=== PATIENT | male | born 1955 | race Two or more races ===

== ENCOUNTER 2023-03-14 02:14 | Inpatient (IN) | payer MEDICARE, MEDICAID ==
[~2023-03-14] VITALS: Ht 177.8 cm; Wt 93.4 kg
[2023-03-14] MEDS ORDERED: LABETALOL HCL 5 MG/ML 20 ML VIAL IVP PRN ×4 (02:30)
[2023-03-14 03:29] LABS: BASOPHILS % (AUTO) 0.7 % (0.0-2.0); EOSINOPHILS % (AUTO) 3.5 % (1.0-6.0); HEMATOCRIT 42.8 % (41-53); HEMOGLOBIN 14.6 g/dL (13.5-17.5); LYMPHOCYTES # (AUTO) 2.5 K/uL (1.0-4.8); LYMPHOCYTES % (AUTO) 32.3 % (22.0-44.0); MEAN CORPUSCULAR HEMOGLOBIN 31.2 pg (26.0-34.0); MEAN CORPUSCULAR VOLUME 92 fL (80-100); MONOCYTES # (AUTO) 0.4 K/uL (0.1-1.0); MONOCYTES % (AUTO) 5.7 % (2.0-9.0); NEUTROPHILS # (AUTO) 4.5 K/uL (1.8-7.7); NEUTROPHILS % (AUTO) 57.8 % (40.0-70.0); PLATELET COUNT (AUTO) 230 K/uL (150-450); RED BLOOD CELL COUNT(AUTO) 4.68 MIL/uL (4.50-5.90); RED CELL DISTRIBUTION WIDTH 13.6 % (11.5-14.5); WHITE BLOOD COUNT (AUTO) 7.8 K/uL (4.5-11.0)
[2023-03-14 03:39] LABS: ANION GAP 6 mmol/L (8-16); CARBON DIOXIDE 27 mmol/L (22-29); CHLORIDE 102 mmol/L (98-107); CREATININE 1.14 mg/dL (0.60-1.30); GLOMERULAR FILTR. RATE CALC > 60 mL/min (>60); GLUCOSE,RANDOM 165 mg/dL (70-110); POTASSIUM 3.7 mmol/L (3.5-5.1); SODIUM SERUM 135 mmol/L (136-145); UREA NITROGEN, BLOOD 20 mg/dL (7-18)
[2023-03-14 03:43] LABS: CHOL/HDL RATIO 4.3 (4.2-7.3); CHOLESTEROL 179 mg/dL (131-200); HDL CHOLESTEROL 42 mg/dL (40-60); LDL CHOL (CALC.) 92 mg/dL (0-130); TRIGLYCERIDES 227 mg/dL (15-150)
[2023-03-14 03:45] LABS: ALANINE AMINOTRANSFERASE 38 U/L (12-78); ALBUMIN 3.6 g/dL (3.4-5.0); ALKALINE PHOSPHATASE 60 U/L (46-116); ASPARTATE AMINOTRANSFERASE 25 U/L (15-37); BILIRUBIN,TOTAL 0.4 mg/dL (0.1-1.0); TOTAL PROTEIN, SERUM 7.1 g/dL (6.4-8.2)
[2023-03-14 03:47] LABS: TROPONIN I-HIGH SENSITIVITY 8 ng/L (<76)
[2023-03-14 03:51] LABS: ALCOHOL, BLOOD (SERUM) < 3 mg/dL (0-10)
[2023-03-14] MEDS ORDERED: ASPIRIN 325 MG TABLET PO ONE (04:00)
[2023-03-14] MEDS ORDERED: CLOPIDOGREL BISULFATE 75 MG TABLET PO ONE (04:00)
[2023-03-14 04:16] LABS: PROTHROMBIN TIME 10.8 SEC (9.4-11.6)
[2023-03-14 04:43] LABS: COVID AG,FIA SOURCE NASAL SWAB
[2023-03-14] MEDS ORDERED: ONDANSETRON HCL 4 MG/2 ML VIAL IVP PRN (04:45)
[2023-03-14] MEDS ORDERED: ACETAMINOPHEN 325 MG TABLET PO PRN (04:45)
[2023-03-14 04:49] LABS: SARS-COV2 (COVID) ANTIGEN,FIA Negative (Negative)
[2023-03-14] MEDS: HEPARIN SODIUM,PORCINE 5,000 UNITS/ML VIAL SQ SCH ×3 (07:18→23:07)
[2023-03-14] MEDS ORDERED: INSULIN LISPRO 100 UNITS/ML SQ PRN (07:45)
[2023-03-14] MEDS ORDERED: DEXTROSE 50%-WATER 25 GM/50 ML SYRINGE IVP PRN (07:45)
[2023-03-14 08:19] LABS: APPEARANCE,URINE CLEAR (CLEAR); BILIRUBIN,URINE NEGATIVE (NEGATIVE); COLOR,URINE LIGHT YELLOW (YELLOW); GLUCOSE, URINE (UA) 70-100 mg/dL (NEGATIVE); KETONES,URINE NEGATIVE (NEGATIVE); LEUKOCYTE ESTERASE ,URINE NEGATIVE (NEGATIVE); NITRATE,URINE NEGATIVE (NEGATIVE); OCCULT BLOOD,URINE NEGATIVE (NEGATIVE); PH,URINE 5.5 (5.0-8.0); PH,URINE DRUG SCREEN 5.5 (5.0-8.0); PROTEIN,URINE 30-70 mg/dL (NEGATIVE); SPECIFIC GRAVITIY, URINE > 1.030 (1.003-1.030); UROBILINOGEN,URINE <=1.0 mg/dL (<=1.0)
[2023-03-14 08:24] LABS: ALCOHOL, URINE DRUG SCREEN NEGATIVE (NEGATIVE); AMPHET/METH SCREEN,URINE NEGATIVE (NEGATIVE); BARBITURATE SCREEN, URINE NEGATIVE (NEGATIVE); BENZODIAZEPINES SCREEN,URINE NEGATIVE (NEGATIVE); CANNABINOID SCREEN,URINE NEGATIVE (NEGATIVE); COCAINE SCREEN,URINE NEGATIVE (NEGATIVE); METHADONE SCREEN, URINE NEGATIVE (NEGATIVE); OPIATE SCREEN,URINE NEGATIVE (NEGATIVE); PHENCYCLIDINE SCREEN,URINE NEGATIVE (NEGATIVE)
[2023-03-14 08:34] LABS: BACTERIA,URINE None Seen /HPF (None Seen); RBC,URINE None Seen /HPF (0-2); WBC,URINE None Seen /HPF (0-5)
[2023-03-14] MEDS: DOCUSATE SODIUM 100 MG CAPSULE PO SCH ×2 (08:42→21:10)
[2023-03-14] MEDS: ATORVASTATIN CALCIUM 40 MG TABLET PO SCH (08:42)
[2023-03-14 12:28] VITALS: BP 137/84; PULSE 71; RESP 18; TEMP 97.8
[2023-03-14 12:51] LABS: GLUCOMETER DEV NAME(LOC) 5S.2C; GLUCOSE,POINT OF CARE 114 MG/DL (70-110)
[2023-03-14 20:10] VITALS: BP 112/72; PULSE 87; RESP 18; TEMP 98
[2023-03-14 20:15] VITALS: BP 126/82; PULSE 73; RESP 20; TEMP 98.2
[2023-03-14] MEDS ORDERED: MORPHINE SULFATE 2 MG/ML SYRINGE IVP PRN (21:00)
[2023-03-14 21:11] LABS: GLUCOMETER DEV NAME(LOC) 5N.2C; GLUCOSE,POINT OF CARE 121 MG/DL (70-110)
[2023-03-15 00:21] LABS: GLUCOMETER DEV NAME(LOC) 5S.2C; GLUCOSE,POINT OF CARE 150 MG/DL (70-110)
[2023-03-15 00:24] VITALS: BP 107/75; PULSE 82; RESP 18; TEMP 98
[2023-03-15 04:13] VITALS: BP 131/89; PULSE 78; RESP 20; TEMP 98.2
[2023-03-15 06:54] LABS: BASOPHILS % (AUTO) 0.6 % (0.0-2.0); HEMATOCRIT 41.5 % (41-53); HEMOGLOBIN 14.2 g/dL (13.5-17.5); LYMPHOCYTES # (AUTO) 1.9 K/uL (1.0-4.8); LYMPHOCYTES % (AUTO) 34.8 % (22.0-44.0); MEAN CORPUSCULAR HEMOGLOBIN 31.3 pg (26.0-34.0); MEAN CORPUSCULAR HGB CONC 34.2 G/dL (31.0-37.0); MEAN CORPUSCULAR VOLUME 92 fL (80-100); MONOCYTES # (AUTO) 0.4 K/uL (0.1-1.0); MONOCYTES % (AUTO) 7.5 % (2.0-9.0); NEUTROPHILS # (AUTO) 2.8 K/uL (1.8-7.7); NEUTROPHILS % (AUTO) 53.1 % (40.0-70.0); PLATELET COUNT (AUTO) 193 K/uL (150-450); RED BLOOD CELL COUNT(AUTO) 4.53 MIL/uL (4.50-5.90); RED CELL DISTRIBUTION WIDTH 13.3 % (11.5-14.5); WHITE BLOOD COUNT (AUTO) 5.3 K/uL (4.5-11.0)
[2023-03-15 07:11] LABS: ANION GAP 9 mmol/L (8-16); CARBON DIOXIDE 27 mmol/L (22-29); CHLORIDE 103 mmol/L (98-107); CREATININE 0.89 mg/dL (0.60-1.30); GLOMERULAR FILTR. RATE CALC > 60 mL/min (>60); GLUCOSE,RANDOM 137 mg/dL (70-110); SODIUM SERUM 139 mmol/L (136-145); UREA NITROGEN, BLOOD 14 mg/dL (7-18)
[2023-03-15 07:35] VITALS: BP 136/82; PULSE 82; RESP 18; TEMP 97.8
[2023-03-15 07:46] LABS: GLUCOMETER DEV NAME(LOC) 5S.2C; GLUCOSE,POINT OF CARE 140 MG/DL (70-110)
[2023-03-15] MEDS ORDERED: ASPIRIN 81 MG CHEWABLE TABLET PO SCH (08:00)
[2023-03-15] MEDS: ATORVASTATIN CALCIUM 40 MG TABLET PO SCH (08:22)
[2023-03-15] MEDS: DOCUSATE SODIUM 100 MG CAPSULE PO SCH (08:22)
[2023-03-15] MEDS: HEPARIN SODIUM,PORCINE 5,000 UNITS/ML VIAL SQ SCH ×2 (08:23→16:00)
[2023-03-15] MEDS ORDERED: CLOPIDOGREL BISULFATE 75 MG TABLET PO SCH (09:00)
[2023-03-15] MEDS ORDERED: GADOTERATE MEGLUMINE 10 MMOL/20 ML VIAL IVP ONE (09:58)
[2023-03-15] MEDS ORDERED: HYDROCODONE/ACETAMINOPHEN 5-325 MG TABLET PO PRN (10:00)
[2023-03-15 11:57] VITALS: BP 145/88; PULSE 87; RESP 18; TEMP 98.3
[2023-03-15 15:59] VITALS: BP 136/78; PULSE 68; RESP 18; TEMP 97.9
[2023-03-15] MEDS ORDERED: ASPI-1450 PO (17:07)
[2023-03-15] MEDS ORDERED: CLOP75TA60 PO (17:07)
[2023-03-15] MEDS ORDERED: ATOR40TA28 PO (17:08)
== END 2023-03-15 17:20 | disposition home or self-care (01) | DRG 69 ==
LOC: EMS 02:15 → 5S 06:39
PROVIDERS: ADMIT Internal Medicine; ATTEND Internal Medicine
DX: G45.9 Transient cerebral ischemic attack, unspecified (principal); E87.20 Acidosis, unspecified; E86.0 Dehydration; E11.9 Type 2 diabetes mellitus without complications; E78.1 Pure hyperglyceridemia; Z20.822 Contact with and (suspected) exposure to COVID-19; M54.10 Radiculopathy, site unspecified; I10 Essential (primary) hypertension; R79.89 Other specified abnormal findings of blood chemistry
CPT/HCPCS: 70496; 70498; 70551; 71045; 72050; 72052; 72125; 72156; 80048; 80053; 80061; 80307; 81001; 82948; 82962; 83735; 84484; 85025; 85610; 85730; 86850; 86900; 86901; 92521; 93005; 93306; 97165; 97535; 99291; G0480; J1644; J2270; 36415-L1; 36415-TC; 70450; 70450-TC